=== PATIENT | male | born 1990 | race African-American/Black ===

== ENCOUNTER 2023-02-21 00:21 | Emergency (ER) | payer MEDICAID ==
[~2023-02-21] VITALS: Ht 177.8 cm; Wt 68.0 kg
[2023-02-21] MEDS ORDERED: IBUP-1492 PO (02:05)
[2023-02-21 02:13] VITALS: TEMP 98.3
[2023-02-21 03:00] VITALS: BP 124/63; PULSE 68; RESP 16
[2023-02-21] MEDS ORDERED: IBUPROFEN 600 MG TABLET PO ONE (03:00)
== END 2023-02-21 03:37 | disposition home or self-care (01) ==
LOC: EMS 00:22
DX: S43.102A Unspecified dislocation of left acromioclavicular joint, initial encounter (principal); F17.210 Nicotine dependence, cigarettes, uncomplicated; F12.90 Cannabis use, unspecified, uncomplicated; F10.90 Alcohol use, unspecified, uncomplicated; X58.XXXA Exposure to other specified factors, initial encounter; Y93.89 Activity, other specified; Y92.89 Other specified places as the place of occurrence of the external cause; Y99.8 Other external cause status
CPT/HCPCS: 29505; 99283

== ENCOUNTER 2025-01-07 18:54 | Emergency (ER) | payer BC, MEDICAID ==
[~2025-01-07 18:54] MED LIST: IBUP-1492 PO
[2025-01-07 20:08] VITALS: BP 122/69; PULSE 54; RESP 12; O2SAT 95
== END 2025-01-07 21:23 | disposition home or self-care (01) ==
LOC: EMS 18:54
DX: S60.511A Abrasion of right hand, initial encounter (principal); F15.90 Other stimulant use, unspecified, uncomplicated; F12.90 Cannabis use, unspecified, uncomplicated; F17.210 Nicotine dependence, cigarettes, uncomplicated; F10.90 Alcohol use, unspecified, uncomplicated; Z79.899 Other long term (current) drug therapy; W26.8XXA Contact with other sharp object(s), not elsewhere classified, initial encounter; W45.8XXA Other foreign body or object entering through skin, initial encounter; Y93.89 Activity, other specified; Y92.89 Other specified places as the place of occurrence of the external cause; Y99.8 Other external cause status; Y90.9 Presence of alcohol in blood, level not specified
CPT/HCPCS: 99283; Z7502